=== PATIENT | male | born 1980 | race Caucasian/White ===

== ENCOUNTER 2018-09-15 11:22 | Day surgery (SDC) | payer OTHER ==
[~2018-09-15 11:22] MED LIST: Lactated Ringers 1,000 ML IV SCH
--- NOTE | 2018-09-15 12:45 | PCM.PREANE ---
Preanesthetic Assessment - Anesthesia/Transfusion/Family Hx Anesthesia History: No Prior Anesthesia Family History of Anesthesia Reaction: No Transfusion History: No Prior Transfusion(s) Intubation History: Unknown - Review of Systems General: No Symptoms Pulmonary: No Symptoms Cardiovascular: No Symptoms Gastrointestinal: Hematochezia Neurological: No Symptoms Other: Reports: None - Physical Assessment NPO Status Date: 09/15/18 NPO Status Time: 04:00 O2 Sat by Pulse Oximetry: 96 Respiratory Rate: 16 Vital Signs: Last Vital Signs Temp 37.1 C 09/15/18 11:50 Pulse 60 09/15/18 11:50 Resp 16 09/15/18 11:50 BP 111/60 09/15/18 11:50 Pulse Ox 96 09/15/18 11:50 Height: 5 ft 10 in Weight: 87.997 kg ASA Class: 1 Mental Status: Alert & Oriented x3 Airway Class: Mallampati = 1 Dentition: Reports: Normal Dentition ROM/Head Extension: Full Lungs: Clear to Auscultation, Normal Respiratory Effort Cardiovascular: Regular Rate, Regular Rhythm - Allergies Allergies/Adverse Reactions: Allergies Allergy/AdvReac Type Severity Reaction Status Date / Time No Known Allergies Allergy Verified 09/11/18 09:56 - Blood Blood Available: No - Anesthesia Plan Pre-Op Medication Ordered: None - Acknowledgements Anesthesia Type Planned: MAC Pt an Appropriate Candidate for the Planned Anesthesia: Yes Alternatives and Risks of Anesthesia Discussed w Pt/Guardian: Yes Pt/Guardian Understands and Agrees with Anesthesia Plan: Yes PreAnesthesia Questionnaire HEENT History: Reports: Allergic Rhinitis Musculoskeletal History: Reports: Fracture Other Musculoskeletal History: hx of fx right pinky finger - SUBSTANCE USE Smoking Status *Q: Former Smoker Tobacco Use Within Last Twelve Months: No Recreational Drug Use History: No - HOME MEDS Home Medications: Home Meds Creatinine 1 gm PO ASDIRECTED 09/11/18 [History] Fish Oil/DHA/EPA [Fish Oil 1,200 MG] 1,200 mg PO DAILY 09/11/18 [History] Multivitamin [Daily Multiple Vitamin] 2 tab PO DAILY 09/11/18 [History] Protein Supplement [Protein Powder] 1 dose PO ASDIRECTED 09/11/18 [History] Testosterone Cypionate 1 tab PO DAILY 09/11/18 [History] - CURRENT (IN HOUSE) MEDS Current Meds: Current Medications Lactated Ringer's (Ringers, Lactated) 1,000 mls @ 125 mls/hr IV ASDIRECTED [facility] Last Admin: 09/15/18 12:00 Dose: 125 mls/hr
[2018-09-15] MEDS ORDERED: fentaNYL 100 MCG/2 ML SDV ONE (13:30)
[2018-09-15] MEDS ORDERED: Propofol 200 MG/20 ML SDV ONE ×2 (13:30→14:11)
[2018-09-15] MEDS ORDERED: Midazolam 1 MG/ML 2 ML SDV ONE (13:30)
--- NOTE | 2018-09-15 14:26 | PCM.OPNOTE ---
- General Post-Op/Procedure Note Date of Surgery/Procedure: 09/15/18 Operative Procedure(s): Colonoscopy Pre Op Diagnosis: Rectal bleeding. Change in bowel habits. Post-Op Diagnosis: No evidence of neoplasia. Anesthesia Technique: MAC (ASA I) Primary Surgeon: Maverick Landeros Condition: Good Free Text/Narrative:: DICTATION [id number] CPT CODE 33819
[2018-09-15] MEDS ORDERED: Lactated Ringers 1,000 ML IV SCH (14:30)
--- NOTE | 2018-09-17 06:45 | OR ---
SURGEON: Maverick Landeros M.D. DATE OF PROCEDURE: 09/15/2018 OPERATION PERFORMED: Colonoscopy. PRIMARY SURGEON: Maverick Landeros M.D. ANESTHESIA: MAC. ASA CLASSIFICATION: 1. PREOPERATIVE DIAGNOSES: 1. Rectal bleeding. 2. Change in bowel habits. POSTOPERATIVE DIAGNOSIS: No evidence of neoplasia. DESCRIPTION OF PROCEDURE: The patient was taken to the endoscopy room and positioned on the endoscopy table in the left lateral decubitus position. Time-out was called for appropriate identification of the patient and procedure. Monitored anesthesia care was provided. The colonoscope was inserted into the rectum and advanced with minimal difficulty to the cecum where the colonoscope was retroflexed to visualize the ascending colon from below. The colonoscope was then straightened and slowly withdrawn. The cecum, ascending colon, hepatic flexure, transverse colon, splenic flexure, descending colon, sigmoid colon, and rectum were very well visualized. No tumors, polyps, diverticula, or angiodysplastic changes were noted anywhere in the lower gastrointestinal tract. There was no evidence of inflammatory bowel disease. Once the colonoscope was withdrawn to the rectum, it was retroflexed to visualize the anal orifice from above. Again, no tumors or polyps were seen, and there were no acute hemorrhoidal changes. The colonoscope was then straightened, the rectum aspirated, and the colonoscope removed. The patient tolerated the procedure well and was taken to recovery room in stable condition. KATE CEDEÑO /[id number]
== END 2018-09-15 15:21 | disposition home or self-care (01) ==
LOC: MW.SDS 11:22
PROVIDERS: ATTEND Surgery
DX: K62.5 Hemorrhage of anus and rectum (principal); R19.4 Change in bowel habit; K62.89 Other specified diseases of anus and rectum; Z87.891 Personal history of nicotine dependence; Z79.899 Other long term (current) drug therapy
CPT/HCPCS: 45378; J2001; J2250; J2704; J3010; J7120; 00811